=== PATIENT | male | born 2000 | race Caucasian/White ===

== ENCOUNTER 2021-11-12 17:55 | Emergency (ER) | payer SELFPAY ==
--- NOTE | 2021-11-12 18:55 | ER ---
Nurse's Notes [facility] Name: Ezequiel King Age: 20 yrs Sex: Male : 2000 Arrival Date: 11/12/2021 Time: 17:55 Bed Waiting Private MD: Diagnosis: Ingrowing nail;Local infection of the skin and subcutaneous tissue, unspecified Presentation: 11/12 18:52 Chief complaint: Patient states: I have had a bad ingrown toenail for about a year now bm7 and its getting worse. Coronavirus screen: At this time, the client does not indicate any symptoms associated with coronavirus-19. Ebola Screen: No symptoms or risks identified at this time. Initial Sepsis Screen: Does the patient meet any 2 criteria? No. Patient's initial sepsis screen is negative. Does the patient have a suspected source of infection? Yes: Skin breakdown/wound. Risk Assessment: Do you want to hurt yourself or someone else? Patient reports no desire to harm self or others. Onset of symptoms is unknown. 18:52 Method Of Arrival: Ambulatory 7 18:52 Acuity: RUFINO 4 bm7 Triage Assessment: 18:54 General: Appears in no apparent distress. uncomfortable, Behavior is calm, cooperative, bm7 appropriate for age. Pain: Complains of pain in Right first toenail. EENT: No deficits noted. No signs and/or symptoms were reported regarding the EENT system. Neuro: No deficits noted. Cardiovascular: No deficits noted. Respiratory: No deficits noted. GI: No deficits noted. No signs and/or symptoms were reported involving the gastrointestinal system. : No deficits noted. No signs and/or symptoms were reported regarding the genitourinary system. Derm: Skin is intact, is healthy with good turgor, Skin is dry, Skin is normal, Skin temperature is warm Wound noted Other: ingrown toenail with drainage and inflammation. Musculoskeletal: No deficits noted. No signs and/or symptoms reported regarding the musculoskeletal system. Historical: - Allergies: 18:54 No Known Allergies; bm7 - Home Meds: 18:54 None [Active]; bm7 - PMHx: 18:54 None; bm7 - PSHx: 18:54 None; bm7 - Immunization history:: Adult Immunizations up to date. - Social history:: Smoking status: Patient denies any tobacco usage or history of. Screenin:56 Abuse screen: Denies threats or abuse. Nutritional screening: No deficits noted. bm7 Tuberculosis screening: No symptoms or risk factors identified. Fall Risk None identified. Assessment: 18:56 Reassessment: No changes from previously documented assessment. bm7 Vital Signs: 18:52 BP 117 / 75; Pulse 64; Resp 16; Temp 97.5(TE); Pulse Ox 100% on R/A; Weight 72.57 kg bm7 (R); Height 5 ft. 7 in. (170.18 cm); Pain 6/10; 18:52 Body Mass Index 25.06 (72.57 kg, 170.18 cm) bm7 ED Course: 17:55 Patient arrived in ED. am2 18:27 [facility] Fin[facility]-C [facility] kb 18:27 Parrish Garcia MD is Attending Physician. kb 18:54 Triage completed. bm7 18:54 Arm band placed on right wrist. bm7 18:56 Patient has correct armband on for positive identification. bm7 18:56 No provider procedures requiring assistance completed. Patient did not have IV access bm7 during this emergency room visit. Administered Medications: No medications were administered Medication: 18:56 VIS not applicable for this client. bm7 Outcome: 18:54 Discharge ordered by . kb 19:03 Discharged to home ambulatory. bm7 19:03 Condition: good 19:03 Discharge instructions given to patient, Instructed on discharge instructions, follow up and referral plans. medication usage, Demonstrated understanding of instructions, follow-up care, medications, Prescriptions given X 1. 19:03 Patient left the ED. bm7 Signatures: Valarie Finch FNP-C FNP-Ckb Moreno, Amanda am2 Jessenia Lee, RN RN bm7
--- NOTE | 2021-11-12 18:55 | EDPHYS ---
Physician Documentation [facility] Name: Ezequiel King Age: 20 yrs Sex: Male : 2000 Arrival Date: 11/12/2021 Time: 17:55 Bed Waiting Private MD: ED Physician Parrish Garcia HPI: 11/12 23:16 This 20 yrs old Male presents to ER via Ambulatory with complaints of ingrown. kb 23:16 The patient presents with pain, swelling. The complaints affect the right foot. kb Context: The problem was sustained at home, resulted from the patient can fully bear weight, the patient is able to ambulate. Onset: The symptoms/episode began/occurred 1.5 year(s) ago, and became worse. Modifying factors: The symptoms are alleviated by nothing, the symptoms are aggravated by nothing. Associated signs and symptoms: Pertinent positives: swelling, Pertinent negatives: fever. Severity of symptoms: At their worst the symptoms were mild, in the emergency department the symptoms are unchanged. The patient has not experienced similar symptoms in the past. The patient has not recently seen a physician. Pt reports he has had an ingrown nail to right great toe for a year and a half. States it became red and swollen this week. Historical: - Allergies: 18:54 No Known Allergies; bm7 - Home Meds: 18:54 None [Active]; bm7 - PMHx: 18:54 None; bm7 - PSHx: 18:54 None; bm7 - Immunization history:: Adult Immunizations up to date. - Social history:: Smoking status: Patient denies any tobacco usage or history of. ROS: 23:14 Constitutional: Negative for fever, chills, and weight loss. kb 23:14 MS/extremity: Positive for erythema, pain, of the right first toe. 23:14 All other systems are negative. Exam: 23:15 Constitutional: This is a well developed, well nourished patient who is awake, alert, kb and in no acute distress. Head/Face: Normocephalic, atraumatic. ENT: Moist Mucous membranes Cardiovascular: Regular rate and rhythm with a normal S1 and S2. No gallops, murmurs, or rubs. No pulse deficits. Respiratory: Respirations even and unlabored. No increased work of breathing. Talking in full sentences Skin: Warm, dry with normal turgor. Normal color. Neuro: Awake and alert, GCS 15, oriented to person, place, time, and situation. Moves all extremities. Normal gait. Psych: Awake, alert, with orientation to person, place and time. Behavior, mood, and affect are within normal limits. 23:15 Musculoskeletal/extremity: Nails: ingrown nail on both sides of right great toe with redness, swelling and drainge. Vital Signs: 18:52 BP 117 / 75; Pulse 64; Resp 16; Temp 97.5(TE); Pulse Ox 100% on R/A; Weight 72.57 kg bm7 (R); Height 5 ft. 7 in. (170.18 cm); Pain 6/10; 18:52 Body Mass Index 25.06 (72.57 kg, 170.18 cm) bm7 MDM: 18:54 Patient medically screened. kb 23:15 Data reviewed: vital signs, nurses notes. Data interpreted: Pulse oximetry: on room air kb is 100 %. Interpretation: normal. Counseling: I had a detailed discussion with the patient and/or guardian regarding: the historical points, exam findings, and any diagnostic results supporting the discharge/admit diagnosis, the need for outpatient follow up, a generation engineer, to return to the emergency department if symptoms worsen or persist or if there are any questions or concerns that arise at home. Administered Medications: No medications were administered Disposition Summary: 11/12/21 18:54 Discharge Ordered Location: Home kb Condition: Stable kb Diagnosis - Ingrowing nail kb - Local infection of the skin and subcutaneous tissue, unspecified kb Followup: kb - With: Emergency Department - When: As needed - Reason: Worsening of condition Followup: kb - With: Private Physician - When: 2 - 3 days - Reason: Recheck today's complaints, Continuance of care, Re-evaluation by your physician Discharge Instructions: - Discharge Summary Sheet kb - Ingrown Toenail kb Forms: - Medication Reconciliation Form kb - Thank You Letter kb - Antibiotic Education kb - Prescription Opioid Use kb Prescriptions: - Bactrim DS 800-160 mg Oral Tablet - take 1 tablet by ORAL route every 12 hours for 7 days; 14 tablet; Refills: 0, kb Product Selection Permitted Addendum: 11/16/2021 07:37 Co-signature as Attending Physician, Parrish Garcia MD. r n Signatures: Valarie Finch, MOTOR ASSEMBLY SUPERVISOR-C MOTOR ASSEMBLY SUPERVISOR-Parrish Ortega MD MD rn McCarthy, Brittany, RN RN bm7
[2021-11-12 20:16] VITALS: BP 117/75; TEMP 97.5; O2SAT 100
== END 2021-11-12 19:03 | disposition home or self-care (01) ==
LOC: ER 17:55
DX: L60.0 Ingrowing nail (principal)
CPT/HCPCS: 99282

== ENCOUNTER 2022-05-01 11:35 | Emergency (ER) | payer SELFPAY ==
[2022-05-01] MEDS ORDERED: LIDOCAINE 1% 20 ML MDV ONE (12:07)
--- NOTE | 2022-05-01 12:56 | ER ---
Nurse's Notes [facility] Name: Ezequiel King Age: 21 yrs Sex: Male : 2000 Arrival Date: 05/01/2022 Time: 11:37 Bed 11 Private MD: Diagnosis: Paronychia of the left thumb Presentation: 05/01 11:47 Chief complaint: Patient states: redness and swelling to left thumb. Coronavirus aa5 screen: At this time, the client does not indicate any symptoms associated with coronavirus-19. Ebola Screen: Patient denies travel to an Ebola-affected area in the 21 days before illness onset. Initial Sepsis Screen: Does the patient meet any 2 criteria? No. Patient's initial sepsis screen is negative. Does the patient have a suspected source of infection? No. Patient's initial sepsis screen is negative. Risk Assessment: Do you want to hurt yourself or someone else? Patient reports no desire to harm self or others. Onset of symptoms was April 2022. 11:47 Method Of Arrival: Ambulatory aa5 11:47 Acuity: RUFINO 4 aa5 Historical: - Allergies: 11:48 No Known Allergies; aa5 - PMHx: 11:48 None; aa5 - Immunization history:: Adult Immunizations unknown. - Social history:: Smoking status: Patient denies any tobacco usage or history of. Screenin:13 [facility] ED Fall Risk Assessment (Adult) History of falling in the last 3 months, mb9 including since admission No falls in past 3 months (0 pts) Confusion or Disorientation No (0 pts) Intoxicated or Sedated No (0 pts) Impaired Gait No (0 pts) Mobility Assist Device Used No (0 pt) Altered Elimination No (0 pt) Score/Fall Risk Level 0 - 2 = Low Risk Oriented to surroundings, Maintained a safe environment, Educated pt \T\ family on fall prevention, incl call for assistance when getting out of bed. Abuse screen: Denies threats or abuse. Nutritional screening: No deficits noted. Tuberculosis screening: No symptoms or risk factors identified. Assessment: 12:12 General: Appears in no apparent distress. comfortable, Behavior is calm, cooperative. mb9 Pain: Denies pain. Neuro: Level of Consciousness is awake, alert, obeys commands. Cardiovascular: Capillary refill < 3 seconds is brisk Patient's skin is warm and dry. Respiratory: Airway is patent Respiratory effort is even, unlabored, Respiratory pattern is regular, symmetrical. GI: No signs and/or symptoms were reported involving the gastrointestinal system. : No signs and/or symptoms were reported regarding the genitourinary system. Derm: Skin is pink, warm \T\ dry. Derm: redness in left thumb. Musculoskeletal: Swelling present in left thumb. Vital Signs: 11:47 BP 116 / 72; Pulse 71; Resp 16 S; Temp 97.8(TE); Pulse Ox 99% on R/A; Weight 68.04 kg [facility] (R); Height 5 ft. 7 in. (170.18 cm) (R); 11:47 Body Mass Index 23.49 (68.04 kg, 170.18 cm) [facility] ED Course: 11:37 Patient arrived in ED. am2 11:37 Jud Cody FNP is [facility] 11:37 Brady Lewis MD is Attending Physician. [facility] 11:47 Arm band placed on. [facility] 11:48 Triage completed. [facility] 12:00 Bed in low position. Call light in reach. Side rails up X 1. monitor tech on. mb9 12:12 Courtney James, BERTIN is Primary Nurse. mb9 12:57 Assist provider with I \T\ D: of an abscess on left thumb Set up I\T\D tray. Performed by hugh 9 Jud SOUZA Dressing with Neosporin and 4X4s, Patient tolerated well. Patient did not have IV access during this emergency room visit. Administered Medications: 12:57 Drug: Lidocaine (1 %) 20 ml Volume: 20 ml; Route: Infiltration; mb9 Medication: 12:13 VIS not applicable for this client. mb9 Outcome: 12:55 Discharge ordered by . [facility] 12:58 Discharged to home ambulatory. mb9 12:58 Condition: stable 12:58 Discharge instructions given to patient, Instructed on discharge instructions, follow up and referral plans. Demonstrated understanding of instructions, follow-up care, medications, Prescriptions given X 2. 13:04 Patient left the ED. mb9 Signatures: Kaylan Bolaños RN RN [facility] [place] 2 Jud Cody FNP DELI WORKER Courtney Kowalski RN RN mb9 Corrections: (The following items were deleted from the chart) 11:48 11:47 BP 116 / 72; Pulse 71bpm; Resp 16bpm; Spontaneous; Pulse Ox 99% RA; Temp 97.8F aa5 Temporal; aa5
--- NOTE | 2022-05-01 12:56 | EDPHYS ---
Physician Documentation [facility] Name: Ezequiel King Age: 21 yrs Sex: Male : 2000 Arrival Date: 05/01/2022 Time: 11:37 Bed 11 Private MD: ED Physician Brady Lewis HPI: 05/01 11:50 This 21 yrs old Male presents to ER via Ambulatory with complaints of thumb infection. jh7 11:50 Onset: The symptoms/episode began/occurred 2 day(s) ago. Associated signs and symptoms: jh7 Pertinent negatives: fever. Patient states that his left thumb became swollen 2 days ago. Reports redness around the nailbed and states that he drained some purulent drainage out of it yesterday. Denies fever.. Historical: - Allergies: 11:48 No Known Allergies; aa5 - PMHx: 11:48 None; aa5 - Immunization history:: Adult Immunizations unknown. - Social history:: Smoking status: Patient denies any tobacco usage or history of. ROS: 11:50 Constitutional: Negative for fever, chills, and weight loss, Eyes: Negative for injury, jh7 pain, redness, and discharge, Cardiovascular: Negative for chest pain, palpitations, and edema, Respiratory: Negative for shortness of breath, cough, wheezing, and pleuritic chest pain, Back: Negative for injury and pain, MS/Extremity: Negative for injury and deformity, Neuro: Negative for headache, weakness, numbness, tingling, and seizure. 11:50 Skin: Positive for erythema, swelling, of the Left thumb. 11:50 All other systems are negative. Exam: 11:50 Constitutional: This is a well developed, well nourished patient who is awake, alert, jh7 and in no acute distress. Head/Face: Normocephalic, atraumatic. Cardiovascular: Regular rate and rhythm with a normal S1 and S2. No gallops, murmurs, or rubs. Normal PMI, no JVD. No pulse deficits. Respiratory: Lungs have equal breath sounds bilaterally, clear to auscultation and percussion. No rales, rhonchi or wheezes noted. No increased work of breathing, no retractions or nasal flaring. Back: No spinal tenderness. No costovertebral tenderness. Full range of motion. MS/ Extremity: Pulses equal, no cyanosis. Neurovascular intact. Full, normal range of motion. Neuro: Awake and alert, GCS 15, oriented to person, place, time, and situation. Sensory grossly intact. Normal gait. 11:50 Skin: Erythema and swelling noted over the left medial nailbed of the thumb. Tiny area of scant purulent drainage present with no fluctuance.. Vital Signs: 11:47 BP 116 / 72; Pulse 71; Resp 16 S; Temp 97.8(TE); Pulse Ox 99% on R/A; Weight 68.04 kg aa5 (R); Height 5 ft. 7 in. (170.18 cm) (R); 11:47 Body Mass Index 23.49 (68.04 kg, 170.18 cm) aa Procedures: 12:50 I \T\ D: Incision and drainage was performed for an abscess of the left thumb Prepped [facility] with Betadine, Anesthetized with 4 ml's 1% Lidocaine. Incised with #15 blade. Drained small amount purulent fluid. bloody fluid. Dressing: non-Adherent dressing, the patient tolerated the procedure well. MDM: 11:37 Patient medically screened. [facility] 13:00 Differential diagnosis: Paronychia, cellulitis. Data reviewed: vital signs, nurses [facility] notes. I considered the following discharge prescriptions or medication management in the emergency department Prescribed antibiotics. Counseling: I had a detailed discussion with the patient and/or guardian regarding: the historical points, exam findings, and any diagnostic results supporting the discharge/admit diagnosis, to return to the emergency department if symptoms worsen or persist or if there are any questions or concerns that arise at home. Special discussion: Informed the patient that the paronychia may have not been ready to I\T\D yet due to the small amount of drainage expressed. We will start him on antibiotics with mupirocin ointment and advised warm Epsom salt soaks at home. If symptoms worsen or a localized area of fluid collection develops, return to the ER for further care.. 05/01 11:50 Order name: Incision \T\ Drainage Setup; Complete Time: 12:12 [facility] 05/01 11:50 Order name: [facility]. Order: clean thumb; Complete Time: 12:12 [facility] Administered Medications: 12:57 Drug: Lidocaine (1 %) 20 ml Volume: 20 ml; Route: Infiltration; mb9 Disposition: 16:08 Co-signature as Attending Physician, Brady Lewis MD I agree with the assessment and kdr plan of care. Disposition Summary: 05/01/22 12:55 Discharge Ordered Location: Home [facility] Problem: new [facility] Symptoms: are unchanged [facility] Condition: Stable [facility] Diagnosis - Paronychia of the left thumb [facility] Followup: [facility] - With: Private Physician - When: 2 - 3 days - Reason: Recheck today's complaints Discharge Instructions: - Discharge Summary Sheet [facility] Forms: - Medication Reconciliation Form [facility] - Thank You Letter [facility] - Antibiotic Education [facility] - Work release form 9 Prescriptions: - mupirocin 2 % Topical ointment - apply 1 application by TOPICAL route 3 times per day for 7 days; 1 tube; [facility] Refills: 0, Product Selection Permitted - Bactrim DS 800-160 mg Oral Tablet - take 1 tablet by ORAL route every 12 hours for 10 days; 20 tablet; Refills: 0, [facility] Product Selection Permitted Signatures: Brady Lewis MD MD [facility] Kaylan Bolaños, RN RN aa5 Jud Cody FNP COMMUTATOR INSPECTOR [facility] Courtney James RN RN mb9 Corrections: (The following items were deleted from the chart) 14:40 11:50 I \T\ D: Incision and drainage was performed for an abscess of the left thumb [facility] Prepped with Betadine, Anesthetized with 4 ml's 1% Lidocaine. Incised with #15 blade. Drained small amount purulent fluid. bloody fluid. Dressing: non-Adherent dressing, the patient tolerated the procedure well, [facility]
[2022-05-01 13:10] VITALS: BP 116/72; TEMP 97.8; O2SAT 99
== END 2022-05-01 13:04 | disposition home or self-care (01) ==
LOC: ER 11:35
PROC: 0H9GXZZ Drainage of Left Hand Skin, External Approach (ICD-10-PCS; principal; 2022-05-01)
DX: L03.012 Cellulitis of left finger (principal)
CPT/HCPCS: 99284; J2001

== ENCOUNTER 2023-01-07 07:48 | Emergency (ER) | payer SELFPAY ==
[2023-01-07] MEDS ORDERED: ACETAMINOPHEN 500 MG TAB ONE (08:58)
[2023-01-07 09:09] LABS: SARS-CoV-2 Antigen Rapid Res Negative (Negative)
--- NOTE | 2023-01-07 09:21 | ER ---
Nurse's Notes [facility] Name: Ezequiel King Age: 22 yrs Sex: Male : 2000 Arrival Date: 01/07/2023 Time: 07:48 Bed 8 Private MD: Diagnosis: Streptococcal pharyngitis Presentation: 01/07 08:21 Chief complaint: Sore throat, headache, malaise, nausea, body aches, and loss of taste hb x 2 days. Coronavirus screen: Client presents with at least one sign or symptom that may indicate coronavirus-19. Provider contacted for isolation considerations. Ebola Screen: No symptoms or risks identified at this time. Initial Sepsis Screen: Does the patient meet any 2 criteria? No. Patient's initial sepsis screen is negative. Does the patient have a suspected source of infection? No. Patient's initial sepsis screen is negative. Risk Assessment: Do you want to hurt yourself or someone else? Patient reports no desire to harm self or others. Onset of symptoms was January 06, 2023. 08:21 Method Of Arrival: Ambulatory hb 08:21 Acuity: RUFINO 4 hb Triage Assessment: 08:22 General: Appears in no apparent distress. Behavior is calm, cooperative. Pain: Pain hb currently is 7 out of 10 on a pain scale. EENT: Reports sore throat. Neuro: Level of Consciousness is awake, alert, obeys commands, Oriented to person, place, time, situation. Cardiovascular: Patient's skin is warm and dry. Respiratory: Respiratory effort is even, unlabored, Respiratory pattern is regular, symmetrical. GI: Reports nausea. : No signs and/or symptoms were reported regarding the genitourinary system. Derm: Skin is pink, warm \T\ dry. Musculoskeletal: Reports body aches. Historical: - Allergies: 08:22 No Known Allergies; hb - Home Meds: 08:22 None [Active]; hb - PMHx: 08:22 None; hb - PSHx: 08:22 None; hb - Immunization history:: Adult Immunizations up to date. - Social history:: Smoking status: Patient denies any tobacco usage or history of. Screenin:23 [facility] ED Fall Risk Assessment (Adult) Score/Fall Risk Level 0 - 2 = Low Risk hb Oriented to surroundings, Maintained a safe environment. Abuse screen: Denies threats or abuse. Denies injuries from another. Nutritional screening: No deficits noted. Tuberculosis screening: No symptoms or risk factors identified. Assessment: 08:23 General: See triage assessment . hb Vital Signs: 08:21 BP 122 / 70; Pulse 106; Resp 16; Temp 100.7(O); Pulse Ox 100% ; Weight 72.57 kg; Height hb 5 ft. 7 in. ; Pain 7/10; 10:13 BP 113 / 71; Pulse 106; Resp 17 S; Temp 99.5(O); Pulse Ox 97% ; jl7 08:21 Body Mass Index 25.06 (72.57 kg, 170.18 cm) hb 08:21 Pain Scale: Adult hb ED Course: 07:50 Patient arrived in ED. mg5 08:00 Gayle Ovalle PA-C is PHCP. sb4 08:00 Lalit Webb MD is Attending Physician. sb4 08:22 Triage completed. hb 08:22 Arm band placed on. hb 08:23 Lisy Solano RN is Primary Nurse. hb 08:23 Patient has correct armband on for positive identification. Provided Education on: . hb 08:23 No provider procedures requiring assistance completed. Patient did not have IV access hb during this emergency room visit. 08:48 Strep Sent. hb 08:48 Flu Sent. hb 08:48 SARS RAPID Sent. hb Administered Medications: 08:48 Drug: Acetaminophen PO 1000 mg PO once Route: PO; hb 10:14 Follow up: Response: No adverse reaction; Temperature is decreased jl7 Medication: 08:23 VIS not applicable for this client. hb Outcome: 09:21 Discharge ordered by . sb4 10:13 Discharged to home ambulatory, jl7 10:13 Condition: stable 10:13 Discharge instructions given to patient, Instructed on discharge instructions, follow up and referral plans. medication usage, Demonstrated understanding of instructions, follow-up care, medications, Prescriptions given X 1, 10:14 Patient left the ED. jl7 Signatures: Lisy Solano RN RN hb Leal, Jahala, RN RN jl7 Gayle Ovalle PA-C PA-C sb4 Tierney Wise mg5 Corrections: (The following items were deleted from the chart) 08:23 08:21 Chief complaint: Sore throat, headache, malaise, nausea, and loss of taste x 2 hb days. hb
--- NOTE | 2023-01-07 09:21 | EDPHYS ---
Physician Documentation [facility] Name: Ezequiel King Age: 22 yrs Sex: Male : 2000 Arrival Date: 01/07/2023 Time: 07:48 Bed 8 Private MD: ED Physician Lalit Webb HPI: 01/07 08:38 This 22 yrs old Male presents to ER via Ambulatory with complaints of flu like symptoms.sb4 08:38 The patient or guardian reports flu symptoms, arthralgias, low-grade fever, myalgias. sb4 Onset: The symptoms/episode began/occurred last night. Associated signs and symptoms: Pertinent positives: fever, sore throat, Pertinent negatives: chest pain, diarrhea. The patient has experienced a previous episode. The patient has not recently seen a physician. Historical: - Allergies: 08:22 No Known Allergies; hb - Home Meds: 08:22 None [Active]; hb - PMHx: 08:22 None; hb - PSHx: 08:22 None; hb - Immunization history:: Adult Immunizations up to date. - Social history:: Smoking status: Patient denies any tobacco usage or history of. ROS: 08:38 Cardiovascular: Negative for chest pain, palpitations, and edema, sb4 08:38 Constitutional: Positive for body aches, chills, fatigue, fever, malaise, 08:38 ENT: Positive for sore throat, 08:38 All other systems are negative, Exam: 08:38 Constitutional: This is a well developed, well nourished patient who is awake, alert, sb4 and in no acute distress. Head/Face: Normocephalic, atraumatic. Eyes: Extra-ocular motions intact. Periorbital areas with no swelling, redness, or edema. Cardiovascular: Regular rate and rhythm with a normal S1 and S2. Respiratory: Lungs have equal breath sounds bilaterally, clear to auscultation and percussion. No rales, rhonchi or wheezes noted. No increased work of breathing, no retractions or nasal flaring. Abdomen/GI: Soft, non-tender, no distension. Skin: Warm, dry with normal turgor. Normal color with no rashes, no lesions, and no evidence of cellulitis. MS/ Extremity: Pulses equal, no cyanosis. Neurovascular intact. Full, normal range of motion. Neuro: Awake and alert, GCS 15, oriented to person, place, time, and situation. Motor strength 5/5 in all extremities. Sensory grossly intact. 08:38 ENT: Posterior pharynx: Airway: normal, no evidence of obstruction, Tonsils: bilaterally enlarged, with erythema, Vital Signs: 08:21 BP 122 / 70; Pulse 106; Resp 16; Temp 100.7(O); Pulse Ox 100% ; Weight 72.57 kg; Height hb 5 ft. 7 in. ; Pain 7/10; 10:13 BP 113 / 71; Pulse 106; Resp 17 S; Temp 99.5(O); Pulse Ox 97% ; jl7 08:21 Body Mass Index 25.06 (72.57 kg, 170.18 cm) hb 08:21 Pain Scale: Adult hb MDM: 08:05 Patient medically screened. sb4 08:38 Differential Diagnosis: Influenza Upper Respiratory Infection Pharyngitis Viral sb4 Syndrome. 09:21 Data reviewed: vital signs, nurses notes, lab test result(s), and as a result, I will sb4 discharge patient. Counseling: I had a detailed discussion with the patient and/or guardian regarding the historical points, exam findings, and any diagnostic results supporting the discharge/admit diagnosis, lab results, to return to the emergency department if symptoms worsen or persist or if there are any questions or concerns that arise at home. 01/07 08:32 Order name: SARS RAPID; Complete Time: 09:10 sb4 01/07 08:32 Order name: Flu; Complete Time: 09:20 sb4 01/07 08:32 Order name: Strep; Complete Time: 09:08 sb4 Administered Medications: 08:48 Drug: Acetaminophen PO 1000 mg PO once Route: PO; hb 10:14 Follow up: Response: No adverse reaction; Temperature is decreased jl7 Disposition Summary: 01/07/23 09:21 Discharge Ordered Notes: Location: Home sb4 Problem: new sb4 Symptoms: have improved sb4 Condition: Stable sb4 Diagnosis - Streptococcal pharyngitis sb4 Followup: sb4 - With: Emergency Department - When: As needed - Reason: Trouble breathing, Worsening of condition Discharge Instructions: - Discharge Summary Sheet sb4 - Strep Throat, Adult, [id number] sb4 Forms: - Work release form eb - Medication Reconciliation Form sb4 - Thank You Letter sb4 - Antibiotic Education sb4 - Prescription Opioid Use sb4 - Patient Portal Instructions sb4 - Leadership Thank You Letter sb4 Prescriptions: - Amoxicillin 875 mg Oral Tablet - take 1 tablet ORAL route every 12 hours for 10 days; 20 tablet; Refills: 0, sb4 Product Selection Permitted Addendum: 01/08/2023 15:03 I was immediately available for consultation during this patient's visit. I did not e c2 personally see the patient or guide the patient's care.. Signatures: Dispatcher [employer] EDLisy Kirby, RN RN Gayle Cao, PAAmandoC PAKathrine sb4 Lalit Webb MD MD ec2 Brannon Bowman RN jl7
[2023-01-07 10:21] VITALS: BP 113/71; TEMP 99.5; O2SAT 97
== END 2023-01-07 10:14 | disposition home or self-care (01) ==
LOC: ER 07:48
DX: J02.0 Streptococcal pharyngitis (principal); Z20.822 Contact with and (suspected) exposure to COVID-19
CPT/HCPCS: 36415; 87081; 87804; 87811; 99284